=== PATIENT | female | born 1940 | race Caucasian/White ===

== ENCOUNTER 2017-04-15 13:09 | Observation (INO) ==
[2017-04-15] MEDS ORDERED: ASPIRIN PO STA (13:16)
--- NOTE | 2017-04-15 13:48 | EKG Report ---
Test Performed on : 04/15/2017 1:22:49 PM Test Reason : CHEST PAIN Blood Pressure : / mmHG Vent. Rate : 070 BPM Atrial Rate : 070 BPM P-R Int : 156 ms QRS Dur : 098 ms QT Int : 412 ms P-R-T Axes : 066 -41 016 degrees QTc Int : 444 ms Sinus rhythm. with premature atrial complexes. Left axis deviation Low voltage QRS Abnormal ECG When compared with ECG of 06-JUL-2015 13:26, premature atrial complexes. are now present Unconfirmed Result
--- NOTE | 2017-04-15 13:53 | Diag Imaging Result Doc PS360 ---
EXAM: CHEST-2 VIEWS HISTORY: CP TECHNIQUE: COMPARISON: 07/06/2015 FINDINGS: The lungs are hyper expanded. Increased AP diameter to the chest. The heart is not enlarged. The vessels are not distended. There are no infiltrates. No pleural effusions. IMPRESSION: Emphysema Electronically signed by Chiki Ogden 04/15/2017 1:51 PM
[2017-04-15 13:54] LABS: MANUAL DIFF NEEDED? NO
[2017-04-15] MEDS ORDERED: SOLU-MEDROL IV ONE (13:56)
[2017-04-15] MEDS ORDERED: DUONEB (A & A) INH ONE (13:56)
[2017-04-15 14:01] LABS: BASO% 0.6 % (0.0-0.8); EOS# 0.13 X1000 (0.0-0.7); EOS% 1.9 % (0.0-10.0); HEMATOCRIT 40.5 % (37.0-47.0); HEMOGLOBIN 13.5 g/dL (12.0-16.0); IMM GRAN# 0.01 X1000 (0.0-0.04); IMM GRAN% 0.1 % (0.0-0.5); LYMPH# 2.53 X1000 (1.2-3.4); LYMPH% 36.8 % (20.5-51.1); MCH 28.3 PG (27-31); MCHC 33.3 g/dL (33-37); MCV 84.9 FL (81-99); MONO# 0.78 X1000 (0.11-0.59); MONO% 11.3 % (1.7-9.3); MPV 10.4 FL (7.4-10.4); NEUT% 49.3 % (42.2-75.2); PLT 267 X1000 (130-400); RBC 4.77 XMIL (4.2-5.4)
[2017-04-15 14:21] LABS: ALBUMIN 4.1 g/dL (3.5-5.0); CALCIUM 9.4 mg/dL (8.8-10.2); MAGNESIUM 1.7 mg/dL (1.5-2.7); POTASSIUM 3.4 mmol/L (3.5-5.1); TOTAL BILIRUBIN 0.4 mg/dL (0.20-1.00); TOTAL PROTEIN 6.8 g/dL (6.3-8.3)
[2017-04-15 14:26] LABS: BE 6.5 mmoll (-3.0-3.0); BLOOD TYPE ARTERIAL; DRAW SITE L RADIAL; METHB 0.8 % (0.0-1.5); O2(CT) 17.2 mL/dL (15.0-23.0); PO2(98.6) 78 mmHg (60-100); SAMPLE BLOOD; SAO2 97.8 % (95.0-100.0); THB 12.7 g/dL (11.5-17.4)
[2017-04-15 14:28] LABS: INR 0.93 (0.86-1.15); PROTIME 13.2 Seconds (12.1-15.5)
[2017-04-15 14:29] LABS: PTT PL 34.6 Seconds (22.6-43.9)
[2017-04-15 14:33] LABS: pH(98.6) 7.59 (7.35-7.45)
[2017-04-15 14:34] LABS: ALLEN TEST YES; MODALITY ROOM AIR; PCO2(98.6) 29 mmHg (35-45)
--- NOTE | 2017-04-15 16:04 | ED EKG INTERP ---
This chart was entered by Mirna Traylor Scribe, acting as scribe for Sheri Bryan MD. EKG Interpretation - EKG Time of EKG reading by physician:: 13:22 EKG Read and Signed by:: Sheri Bryan EKG Interpretation (*Must complete 3 of following elements*): Abnormal Rate: 70 Rhythm: sinus rhythm with premature atrial complexes [place]: left (left axis deviation) QRS: other (low voltage QRS) NE Interval: normal ST Wave: normal Comments: left axis deviation, low voltage QRS Attestation - Physician/ NEFTALI Attestation Patient care was provided by Advanced Practice Provider:: No The physician spent face to face time with patient:: Yes Advanced Practice Provider documentation review:: Supervising physician onsite and consulted in the evaluation and care of this patient. The physician did have a face to face encounter with the patient. This chart was documented by the indicated scribe, (Mirna Traylor Scribe) and accurately reflects the services I performed and decisions made by me, Sheri Bryan MD, as attested by the provider's signature.
--- NOTE | 2017-04-15 16:06 | PROVIDER DOCUMENTATION ---
This chart was entered by Mirna Traylor Scribe, acting as scribe for Sheri Bryan MD. HPI-Chest Pain - General Chief Complaint: Shortness of Breath Stated Complaint: SOB Time Seen by Provider: 04/15/17 13:40 Source: patient Allergies/Adverse Reactions: Patient Allergies Allergy/AdvReac Type Severity Reaction Status Date / Time codeine Allergy NAUSEA Verified 07/06/15 13:14 Home Medications: Home Medication List Medication Instructions Recorded Confirmed Last Taken Type Amlodipine Besylate [Norvasc] 5 mg PO DAILY 07/06/15 07/06/15 07/06/15 07:00 History Omeprazole 20 mg PO DAILY 07/06/15 07/06/15 07/06/15 07:00 History Temazepam 15 mg PO HS 07/07/15 07/07/15 07/05/15 History Valsartan/Hydrochlorothiazide 1 each PO DAILY 07/07/15 07/07/15 07/06/15 History [Valsartan-Hctz 160-12.5 mg Tab] Hydrocodone/APAP 7.5 mg/325 mg 1 each PO Q6H PRN PRN #30 tablet 07/09/15 Unknown Rx [[place]-7.5] Rivaroxaban [Xarelto] 10 mg PO DAILY@1800 #28 tablet 07/09/15 Unknown Rx - History of Present Illness-CP Nature of Presenting Problem: Patient is a 77 year old female who presents in the ED with complaints of chest pain/dyspnea. She states she had a sudden onset of chest pain and shortness of breath last night, and states her chest pain is still present currently. She also states she has a history of hypertension and a family history of CAD/MIs ( father with [place]/ at 65 years old), but states she has no personal history of cardiac issues. She reports her pain is currently a 4 out of 10 on the pain scale, and reports she has had a mild cough. She denies radiation of her pain, denies history of or current smoking, and also denies edema, fever, and any other symptoms. Location: reports: substernal Chest Pain Radiation: reports: no radiation Quality of Pain: reports: aching Severity in ED: moderate Onset/Duration: abrupt, last night Timing: still present Context/Activities at Onset: reports: none Modifying Factors: improves with: nothing Associated Symptoms: reports: shortness of breath Nitro Today/Relief: no nitro taken today Aspirin Treatment Today: 325 mg x 1, provided by ED Prior Chest Pain/Cardiac Workup: reports: no prior chest pain, no prior cardiac workup, non-cardiac Similar Symptoms Previously?: No Recently Seen Here or By Another Healthcare Provider: No Review of Systems - Adult - REVIEW OF SYSTEMS - ADULT Constitutional: reports: no symptoms reported. denies: fever Eyes: reports: no symptoms reported Ears, Nose, Mouth & Throat: reports: no symptoms reported Cardiovascular: reports: chest pain. denies: edema Respiratory: reports: cough, shortness of breath Gastrointestinal: reports: no symptoms reported Genitourinary: reports: no symptoms reported Musculoskeletal: reports: no symptoms reported Integumentary: reports: no symptoms reported Neurological: reports: no symptoms reported Psychiatric: reports: no symptoms reported Endocrine: reports: no symptoms reported Hematologic/Lymphatic: reports: no symptoms reported Allergic/Immunologic: reports: no symptoms reported All Other Systems: Reviewed and Negative Past History - Adult - PAST MEDICAL HISTORY-ADULT Review of Records: reports: Old Records Reviewed, Nursing Assessment Review, Medications Reviewed Major Childhood Illnesses: reports: denies history Cardiovascular: reports: HTN. denies: denies history, cardiac disease, A-Fib, angina, aortic disease, arrhythmia, blood clots, CAD, congenital heart disease, CHF, heart valve problem, hyperlipidemia, murmur, [place], PAD, palpitations, pacemaker, pericardial disease, PVD, other Respiratory: reports: denies history. denies: asthma, bronchitis, COPD, cancer , cystic fibrosis, lung disease, pneumonia, sleep apnea, tuberculosis, other Gastrointestinal: reports: denies history Obstetrical/Gynecological: reports: denies history Genitourinary: reports: denies history Musculoskeletal: reports: denies history Neurological: reports: denies history Psychiatric: reports: denies history Endocrine/Immune: reports: denies history Other Conditions: reports: denies history - PRIOR SURGERIES/PROCEDURES Surgical/Procedure History: reports: hysterectomy, joint replacement (total knee replacement on right) - IMMUNIZATION STATUS Childhood Immunizations: See Nurse Assessment Flu Vaccine: See Nurse Assessment - FAMILY HISTORY Family History: CAD over 55 yo - SOCIAL HISTORY Smoking: denies Substance Use: none/never Alcohol Use Frequency: never Living Situation: family Physical Exam-General - PHYSICAL EXAM-ADULT Initial Vital Signs Reviewed: Yes - CONSTITUTIONAL General Appearance: alert, no apparent distress - EYES Eyes: PERRL/EOMI, pink conjunctivae - HEAD, EARS, NOSE, MOUTH & THROAT HENMT: normocephalic/atraumatic, moist mucous membranes - NECK Neck: non-tender, full range of motion, supple, normal inspection - RESPIRATORY Respiratory: chest non-tender, lungs clear, normal breath sounds, no pleuratic chest pain, no respiratory distress, no accessory muscle use - CARDIOVASCULAR Cardiovascular: normal peripheral pulses, regular rate, rhythm, no edema, no gallop, no JVD, no murmur - GASTROINTESTINAL (ABDOMEN) Abdominal Exam: non tender, soft, no organomegaly, no pulsatile mass - LYMPHATIC Lymphatic: no adenopathy - MUSCULOSKELETAL Back Exam: normal inspection, no CVA tenderness, no vertebral tenderness Extremity: normal range of motion, non-tender, normal gait, normal inspection, no pedal edema, no calf tenderness, normal capillary refill, pelvis stable - SKIN Integumentary: normal color, normal turgor, warm/dry - NEUROLOGIC Neurologic: grossly normal, no motor/sensory deficits - PSYCHIATRIC Psych/Mental Status: normal mood/affect, oriented x 3 Progress - PLAN OF CARE/RESULTS Progress/Plan/Lab Results: Vital Signs - 8 hr 04/15/17 13:13 04/15/17 13:37 04/15/17 14:15 Temperature 97.6 F Pulse Rate 83 69 62 Respiratory Rate 20 20 18 Blood Pressure 129/92 122/97 136/80 O2 Sat by Pulse Oximetry 99 97 98 Laboratory Results - last 24 hr 04/15/17 04/15/17 04/15/17 13:25 13:25 13:25 WBC RBC Hgb Hct MCV MCH MCHC RDW Std Deviation Plt Count MPV Immature Gran % (Auto) Neut % (Auto) Lymph % (Auto) [place] % (Auto) Eos % (Auto) Baso % (Auto) Immature Gran # (Auto) Neut # (Auto) Lymph # (Auto) [place] # (Auto) Eos # (Auto) Baso # (Auto) PT INR APTT (Factor Assay) D-Dimer Specimen Type Sample Site pH pCO2 pO2 HCO3 Base Excess Oxyhemoglobin ABG O2 Sat (Calculated) ABG O2 Saturation ABG Carboxyhemoglobin ABG Methemoglobin [place] Test A-a O2 Difference Total Hemoglobin Lactate Blood Gas Modality FiO2 % Sodium 138 Potassium 3.4 L Chloride 100 Carbon Dioxide 26 Anion Gap 12 BUN 18 Creatinine 0.9 Estimated GFR/1.73 m2 60 BUN/Creatinine Ratio 20 Glucose 110 H Calculated Osmolality 278 Calcium 9.4 Magnesium 1.7 Total Bilirubin 0.40 AST 39 H ALT 18 Alkaline Phosphatase 77 Creatine Kinase 92 Troponin T < 0.010 Vbv-F-Fwmsqittewd Pept 206 Total Protein 6.8 Albumin 4.1 Globulin 3.0 Albumin/Globulin Ratio 2.0 04/15/17 04/15/17 04/15/17 13:25 13:25 14:00 WBC 6.88 RBC 4.77 Hgb 13.5 Hct 40.5 MCV 84.9 MCH 28.3 MCHC 33.3 RDW Std Deviation 13.4 Plt Count 267 MPV 10.4 Immature Gran % (Auto) 0.1 Neut % (Auto) 49.3 Lymph % (Auto) 36.8 [place] % (Auto) 11.3 H Eos % (Auto) 1.9 Baso % (Auto) 0.6 Immature Gran # (Auto) 0.01 Neut # (Auto) 3.39 Lymph # (Auto) 2.53 [place] # (Auto) 0.78 H Eos # (Auto) 0.13 Baso # (Auto) 0.04 PT 13.2 INR 0.93 APTT (Factor Assay) 34.6 D-Dimer 0.33 Specimen Type ARTERIAL Sample Site L RADIAL pH 7.59 H* pCO2 29 L pO2 78 HCO3 30.0 H Base Excess 6.5 H Oxyhemoglobin 96.0 ABG O2 Sat (Calculated) 17.2 ABG O2 Saturation 97.8 ABG Carboxyhemoglobin 1.00 ABG Methemoglobin 0.8 [place] Test YES A-a O2 Difference 35.0 Total Hemoglobin 12.7 Lactate 0.90 Blood Gas Modality ROOM AIR FiO2 % 21.0 Sodium Potassium Chloride Carbon Dioxide Anion Gap BUN Creatinine Estimated GFR/1.73 m2 BUN/Creatinine Ratio Glucose Calculated Osmolality Calcium Magnesium Total Bilirubin AST ALT Alkaline Phosphatase Creatine Kinase Troponin T Ogt-O-Fqtvftxlsll Pept Total Protein Albumin Globulin Albumin/Globulin Ratio Orders Category Date Time Status Cardiac Monitoring DIRECTED Care 04/15/17 13:17 Active Saline Loc NOW Care 04/15/17 13:17 Active CHEST-2 VIEWS [RAD] Stat Exams 04/15/17 13:17 Completed ABG [RESP] Routine Lab 04/15/17 14:00 Completed CBC WITH ELECTRONIC DIFF [HEME] Stat Lab 04/15/17 13:25 Completed CK PROFILE [SP CHEM] Stat Lab 04/15/17 13:25 Completed COMPREHENSIVE METABOLIC PANEL [CHEM] Stat Lab 04/15/17 13:25 Completed D-DIMER PL [COAG] Stat Lab 04/15/17 13:25 Completed MAGNESIUM [CHEM] Stat Lab 04/15/17 13:25 Completed PRO B-NATRIURETIC PEPTIDE Stat Lab 04/15/17 13:[address] Com[address]IME WITH INR [address] [COAG] Stat Lab 04/15/17 13:[address] [COAG] Stat Lab 04/15/17 13:25 Completed TROPONIN T Stat Lab 04/15/17 13:25 Completed ua [URINALYSIS PL W/POSS RFLX CULT] [URINALYSIS] Stat Lab 04/15/17 13:57 Uncollected Albuterol 2.5MG/Ipratrop 0.5MG [Duoneb (A & A)] Med 04/15/17 13:56 Discontinued 3 ml INH NOW ONE Aspirin Med 04/15/17 13:16 Discontinued 325 mg PO STAT STA Methylprednisolone Sod Succ [Solu-Medrol] Med 04/15/17 13:56 Discontinued 125 mg IV NOW ONE Aerosol Treatments Routine Oth 04/15/17 13:56 Active Aerosol Treatments Stat Oth 04/15/17 13:56 Active EKG [EKG] Stat Ther 04/15/17 13:17 Draft Result Diagrams: 04/15/17 13:25 04/15/17 13:25 - XRAY 1 XRAY Study: Chest Impression: Abnormal XRAY Interpretation: Emphysema - CONSULTS/PCP/HOSPITALIST Notification #1 *Consult/PCP/Hospitalist*: Dr. Conti Time Discussed: 16:05 Consult Disposition: Will see in ED, Admit Departure - Departure Date of Disposition Decision: 04/15/17 Time of Disposition Decision: 16:05 DIAGNOSIS: Chest pain, SOB (shortness of breath) Disposition: ADMITTED INPATIENT 09 Certified Medical Emergency: Emergent Condition: Stable Referrals and Follow-Ups: Reina Calzada MD [Primary Care Provider] - - Critical Care Note This patient required my direct & personal management of CC.: No Attestation - Physician/ NEFTALI Attestation Patient care was provided by Advanced Practice Provider:: No The physician spent face to face time with patient:: Yes Advanced Practice Provider documentation review:: Supervising physician onsite and consulted in the evaluation and care of this patient. The physician did have a face to face encounter with the patient. This chart was documented by the indicated scribe, (Mirna Traylor Scribe) and accurately reflects the services I performed and decisions made by me, Sheri Bryan MD, as attested by the provider's signature.
[2017-04-15 17:03] LABS: URINE CULTURE PL NEEDED? NO
[2017-04-15 17:42] LABS: BILIRUBIN URINE NEGATIVE (NEGATIVE); BLOOD URINE NEGATIVE (NEGATIVE); CLARITY CLEAR (CLEAR); COLOR YELLOW; GLUCOSE URINE NEGATIVE (NEGATIVE); LEUKOCYTES URINE NEGATIVE (NEGATIVE); NITRITE URINE NEGATIVE (NEGATIVE); PROTEIN URINE NEGATIVE (NEGATIVE); UROBILINOGEN URINE NORMAL
[2017-04-15 17:43] LABS: URINE CAST NONE SEEN /LPF; URINE CRYSTAL NONE SEEN /HPF; URINE EPITHELIAL CELLS <10 /HPF (<10); URINE RBC <10 /HPF (<10); URINE SOURCE CLEAN CATCH; URINE WBC <10 /HPF (<10)
[2017-04-15] MEDS ORDERED: TYLENOL PO PRN (18:43)
[2017-04-15] MEDS ORDERED: NS 1,000 ML IV SCH (18:43)
--- NOTE | 2017-04-15 19:05 | HISTORY AND PHYSICAL ---
PRIMARY CARE PHYSICIAN: Reina Calzada MD. CHIEF COMPLAINT: Shortness of breath and indigestion. HISTORY OF PRESENT ILLNESS: This is a 77-year-old female with a history of COPD and hypertension. She presented to the emergency room complaining of chest pain and dyspnea. She states she had a sudden onset last night. Chest pain continues. Shortness of breath waxes and wanes. She does describe this as an aching-type pain that is more epigastric. She states she feels that if she could just burp good, the pain would resolve. She rates her pain as a 10/10 at worst and a 4/10 at least. She could name no exacerbating or alleviating factors. She does report a persistent cough for quite some time. She denied any palpitations, syncope, dizziness. Chest x-ray revealed emphysema. Lungs are hyperexpanded. Heart is not enlarged. Troponin negative, with EKG that revealed sinus rhythm with PACs at a rate of 70. She was given albuterol nebulizers as well as Solu-Medrol and admitted for further evaluation and treatment. PAST MEDICAL HISTORY: Hypertension. PAST SURGICAL HISTORY: Hysterectomy. Total right knee on the right. SOCIAL HISTORY: She denies alcohol, tobacco, or illicit drug use. ALLERGIES: Codeine, which causes nausea. HOME MEDICATIONS: A list will be obtained. REVIEW OF SYSTEMS: A 14 point review of systems is discussed with patient with pertinent positives stated in HPI. She denied syncope, dizziness, palpitations, productive cough, fever, chills, PND, orthopnea, nausea, vomiting, diarrhea, constipation, black or bloody vomitus, black or bloody stools. PHYSICAL EXAMINATION: GENERAL: This is a 77-year-old female who is sitting up in the bed, in no distress. VITAL SIGNS: Blood pressure is 129/92 with a heart rate of 83, respirations are 20. Temperature is 97.6 degrees with room air saturations 97 99%. HEENT: Head is normocephalic, atraumatic. Pupils equal, round, react to light. EOMs are intact. Sclerae anicteric. Mucous membranes are moist. NECK: Supple. Trachea midline. CARDIOVASCULAR: Regular rate and rhythm. S1 and S2 appreciated. PULMONARY: Breath sounds are diminished with prolonged expiration. Chest clear. Chest does rise and fall symmetrically with respiration. GASTROINTESTINAL: Abdomen is soft, nontender, nondistended with bowel sounds in all 4 quadrants. BACK: No CVAT. No spine tenderness. EXTREMITIES: No clubbing, cyanosis, or edema. Calves are nontender. Pulses are palpable x4. NEUROLOGIC: She is alert or x3. Cranial nerves 2-12 grossly intact. DIAGNOSTICS: WBC is 6.8 with hemoglobin 13.5, hematocrit 40.5, and platelets of 267,000. Sodium is 138, potassium 3.4, BUN 18, creatinine 0.9, with a glucose of 110. Urinalysis is essentially negative. CT of the chest revealed emphysema. ASSESSMENT AND PLAN: 1. Chest pain. 2. Shortness of breath. 3. History of hypertension. 4. Chronic obstructive pulmonary disease/emphysema. 5. GI and DVT prophylaxis. PLAN: She will be admitted to the hospital. Placed on telemetry. We will give her a heart healthy diet. We will identify her home medications and continue as appropriate. She is not wheezing at present. We will hold off on steroids. We will trend troponins. Further treatments pending hospital course. Dictated by MALVIN Guillory for Deven Conti MD cc: MALVIN Guillory MD
--- NOTE | 2017-04-16 03:36 | HISTORY AND PHYSICAL ---
ADDENDUM: Patient seen in the ER. She was having chest pain off and on for the past couple of days, continued to worsen. No real fevers or chills. Denies any palpitations. States the pain did go to her left arm but very briefly. Currently her pain is improved. Notes that she has been having some shortness of breath off and on for quite some time. She is currently in no respiratory distress. Awake alert, oriented. Pleasant to talk with. Chest clear. We will admit the patient to hospital, rule out for an SD. Continue to follow. Further orders as needed. cc: Deven Conti MD
[2017-04-16] MEDS ORDERED: TUMS EXTRA STRENGTH PO ONE (03:42)
[2017-04-16 05:50] LABS: HEMATOCRIT 39.3 % (37.0-47.0); HEMOGLOBIN 13.1 g/dL (12.0-16.0); MCH 28.4 PG (27-31); MCHC 33.3 g/dL (33-37); MCV 85.1 FL (81-99); MPV 10.7 FL (7.4-10.4); RBC 4.62 XMIL (4.2-5.4)
[2017-04-16 06:08] LABS: AGAP 13; BUN 18 mg/dL (8-22); CALCIUM 9.2 mg/dL (8.8-10.2); CHLORIDE 102 mmol/L (98-107); COSMO 277; POTASSIUM 3.7 mmol/L (3.5-5.1); SODIUM 137 mmol/L (136-145); TCO2 22 mmol/L (25-35)
[2017-04-16] MEDS ORDERED: RESTORIL PO PRN (06:29)
[2017-04-16] MEDS ORDERED: NORCO-7.5 PO PRN (06:29)
[2017-04-16] MEDS ORDERED: TOPROL XL PO ONE (06:31)
[2017-04-16] MEDS ORDERED: PRILOSEC PO SCH (07:00)
[2017-04-16] MEDS ORDERED: HYDROCHLOROTHIAZIDE PO SCH (09:00)
[2017-04-16] MEDS ORDERED: NORVASC PO SCH (09:00)
[2017-04-16] MEDS ORDERED: NEURONTIN PO SCH (09:00)
[2017-04-16] MEDS ORDERED: DIOVAN PO SCH (09:00)
[2017-04-16] MEDS ORDERED: LOPRESSOR PO ONE ×2 (09:20)
[2017-04-16 09:32] VITALS: BP 124/55
[2017-04-16] MEDS ORDERED: ZOFRAN IV ONE (09:32)
--- NOTE | 2017-04-16 17:47 | DISCHARGE SUMMARY ---
ADMISSION DATE: 04/15/2017 DISCHARGE DATE: 04/16/2017 DIAGNOSES: 1. Chest pain resolved. 2. Shortness of breath resolved. 3. History of hypertension. 4. Chronic obstructive pulmonary disease. DIAGNOSTICS: 04/15/2017, chest x-ray revealed emphysema. HOSPITAL COURSE: Ms. Sy presented to the emergency room complaining of an aching type pain that was more epigastric to midsternal. She kept feeling like if she burped the pain would resolve. She rated the pain a 4/10 to 10/10. The pain did subside shortly after coming to the emergency room and it has not returned nor has she had any further shortness of breath. Blood pressures were monitored and stayed in the 130s to 140s. O2 saturations were 97-100% on room air. We did give an DuoNebs, as well as steroids to taper. Thankfully, she has improved and is ready for discharge. We attempted to do a CTA cardiac on her and it was reported that she was "full of plaque " with a score over 900 therefore the chest could not be completed. It was discussed with the patient that she would need a nuclear stress test. She does not want to stay in the hospital and as she was ruled out and has had no further chest pain or shortness of breath she will be discharged and have a stress test done on an outpatient basis. PHYSICAL EXAMINATION: Cardiovascular: Regular rate and rhythm. S1, S2 appreciated. Pulmonary: Breath sounds are clear. No increased work of breathing noted. Gastrointestinal: Abdomen is soft, nontender, nondistended. Bowel sounds in all 4 quadrants. Extremities: No clubbing, cyanosis, or edema. Calves nontender. Pulses palpable x4. Vital Signs: Blood pressure is 124/55 with a heart rate of 70, respirations 20, temperature is 97.9 degrees oral with room air saturations of 97-100%. DISCHARGE MEDICATIONS: Restoril 15 mg at bedtime p.r.n., gabapentin 300 at 9, 5, and 9. Valsartan hydrochlorothiazide 160/12.5 daily. Norvasc 5 daily, omeprazole 20 daily, [place] 7.5 q.6 hours p.r.n. FOLLOWUP: 1. A [facility]ell[facility] has been scheduled for 04/17/2017 at [facility]. It is at 1:00. She is to be there at 12. 2. Her primary care physician, Dr. Calzada within the next week. She will call today after discharge. 3. Patient was instructed to return to the emergency room for any recurring chest pain, shortness of breath, palpitations, dizziness, syncope, weakness or any questions or concerns that she may have. DISPOSITION: She is being discharged home in stable condition with family members. TIME SPENT: This is a greater than 30 minute discharge. Dictated by MALVIN Guillory for Deven Conti MD cc: MLAVIN Guillory MD
--- NOTE | 2017-04-17 03:46 | DISCHARGE SUMMARY ---
ADMISSION DATE: 04/15/2017 DISCHARGE DATE: 04/16/2017 ADDENDUM: Patient seen and examined. Plan discussed with the nurse practitioner. Patient currently is having no chest pain. Enzymes were negative. Could not do a CTA secondary to her high calcium score. Therefore, we will schedule an outpatient stress test. Patient understands we will discharge home. cc: Deven Conti MD
--- NOTE | 2017-04-17 09:18 | Diag Imaging Result Doc PS360 ---
EXAM: CT HEART WITH CALCIUM SCORING HISTORY: Chest Pain TECHNIQUE: CT heart with calcium score as per cardiology protocol. COMPARISON: None. FINDINGS: Coronary calcium score is 942. There is atherosclerotic calcification within the right and left coronary arteries. No pericardial effusion. There is splenic artery calcification. No acute bony abnormalities are appreciated. No significant pulmonary parenchymal abnormality is appreciated. There is a calcified granuloma peripheral right upper lobe. IMPRESSION: Coronary calcium score 942. No significant extracardiac findings. Electronically signed by Diana Zaldivar 04/17/2017 9:16 AM
== END 2017-04-16 15:53 | disposition home or self-care (01) ==
LOC: P.ED 13:09 → P.MEDSURG 13:09
PROVIDERS: ATTEND Family Medicine